=== PATIENT | female | born 1950 | race Caucasian/White ===

== ENCOUNTER 2023-07-29 10:31 | Outpatient (CLI) | payer MEDICARE, SELFPAY | END 2023-07-29 10:32 | disposition home or self-care (01) | LOC: LKVREF 10:32 | PROVIDERS: PCP Emergency Medicine; Visit Provider Emergency Medicine | DX: R11.0 Nausea (principal); E11.9 Type 2 diabetes mellitus without complications | CPT/HCPCS: 80048 ==

== ENCOUNTER 2023-12-01 12:38 | Outpatient (CLI) | payer MEDICARE, SELFPAY ==
--- NOTE | 2023-12-01 13:00 | XR_ITS ---
Patient: VERNON SYED Facility:?[facility] Patient ID:?[id number] Site Patient ID:?[id number]. Site :?1950 Study:?DEXA-Bone Density DEXA - Spine/Hips-12/01/2023 1:11:45 PM Ordering Physician:GABRIELLE Final Report: DXA BONE MINERAL DENSITY STUDY Reason for exam: Screening. Current height (inches): 65.5 Weight (lbs.): 142.0 Menopause age: 54 Ethnicity: White 1. Have you had a previous hip or vertebral fracture? No. 2. Have you had any fractures during your adult life which did not result from significant trauma (e.g., auto accident)? No. 3. Did either of your parents have a hip fracture? No. 4. Do you smoke? No. 5. Have you ever taken Glucocorticoids? No. 6. Do you have rheumatoid arthritis? No. 7. Do you have secondary osteoporosis? No. 8. Do you drink 3 or more alcoholic drinks per day? No. 9. Are you being treated for osteoporosis? No. 10. Have you ever taken any of the following medications: Actonel, Evista, Fosamax, Miacalcin, Reclast, Boniva, Forteo, HRT (i.e., estrogen/hormone therapy), Protelos, Prolia, Vitamin D, Calcium, other ? please specify. ANSWER: Yes; vitamin D, calcium. 11. Do you have any of the following medical conditions: Anorexia or bulimia, asthma or emphysema, end stage renal disease, hyperparathyroidism, any seizure disorders, cancer, inflammatory bowel diseases, hysterectomy, other ? please specify. ANSWER: Yes; Other: diabetes, GERD. 12. What was your maximum height (inches)? 66. 13. Do you perform weightbearing exercise regularly? No. 14. Do you regularly consume dairy products? No. 15. Do you drink caffeinated beverages? Yes. 16. At what age did your period start? 15. 17. Are you premenopausal? No. 18. How many full-term pregnancies have you had? Not provided. 19. Have you ever missed your period for more than 6 months in a row (not including or menopause)? Yes. TECHNIQUE: Bone mineral density study was performed using the [employer]. FINDINGS: The results of the study expressed as bone mineral density (BMD) are as follows: Lumbar Spine L1 to L4: BMD: 0.979 g/cm2. T-score: -0.6. Z-score: 1.6. Neck Left: BMD: 0.641 g/cm2. T-score: -1.9. Z-score: 0.0. Right: BMD: 0.717 g/cm2. T-score: -1.2. Z-score: 0.7. Total Left: BMD: 0.850 g/cm2. T-score: -0.8. Z-score: 0.8. Right: BMD: 0.845 g/cm2. T-score: -0.8. Z-score: 0.8. IMPRESSION: Osteopenia. FRAX 10-year Fracture Risk Major Osteoporotic Fracture: 11% Hip Fracture: 2.2% Reported Risk Factors: [place] () Neck BMD = 0.641, BMI = 23.3 RENATA PINK M.D. Diagnostic Radiologist [email or web address] MAXIME/mathieu D& Transcribed: 3:[address]/Dictated by: Renata Pink MD @ 12/03/2023 12:01:00 PM Signed by:?Renata Pink MD @12/03/2023 3:33:27 PM (Electronic Signature)
== END 2023-12-01 12:39 | disposition home or self-care (01) ==
PROVIDERS: PCP Emergency Medicine; Visit Provider Emergency Medicine
DX: R01.1 Cardiac murmur, unspecified (principal); I35.1 Nonrheumatic aortic (valve) insufficiency; Z13.6 Encounter for screening for cardiovascular disorders; Z13.820 Encounter for screening for osteoporosis; M85.88 Other specified disorders of bone density and structure, other site
CPT/HCPCS: 77080; 93306

== ENCOUNTER 2024-01-05 12:39 | Outpatient (CLI) | payer MEDICARE, SELFPAY ==
--- NOTE | 2024-01-05 13:20 | MM_ITS ---
Patient: VERNON SYED Facility:?[facility] Patient ID:?[id number] Site Patient ID:?[id number]. Site :?1950 Study:?XRay-Breast Bilateral 3D W/CAD-01/05/2024 8:08:11 AM Ordering Physician:Jing Klein Final Report: BILATERAL SCREENING MAMMOGRAM WITH COMPUTER-AIDED DETECTION AND TOMOSYNTHESIS TECHNIQUE: CC, MLO and implant-displaced views were obtained. These mammographic images have been obtained using full-field digital technique. These mammographic images were interpreted with the benefit of computer-aided detection. Breast tomosynthesis was used in this interpretation. COMPARISON FILM: 12/06/19, 11/30/19, 09/19/18. FINDINGS: The breasts are almost entirely fatty. IMPRESSION: There is no radiographic evidence for malignancy. ASSESSMENT: BI-RADS Category 2: Benign RECOMMENDATION: Routine screening mammogram in 1 year. A lay language report of this examination will be provided to the patient. RENATA PINK M.D. Diagnostic Radiologist [email or web address] DSM/mathieu D& Transcribed: 2:[address]/Dictated by: Renata Pink MD @ 01/12/2024 11:16:00 AM Signed by:?Renata Pink MD @01/12/2024 3:07:17 PM (Electronic Signature)
== END 2024-01-05 12:40 | disposition home or self-care (01) ==
LOC: MAMMO 12:39
PROVIDERS: PCP Emergency Medicine; Visit Provider Emergency Medicine
DX: Z12.31 Encounter for screening mammogram for malignant neoplasm of breast (principal)
CPT/HCPCS: 77063; 77067

== ENCOUNTER 2024-01-27 11:12 | Outpatient (CLI) | payer MEDICARE, SELFPAY ==
--- OUTSIDE RECORDS SUMMARY | 2024-01-27 11:18 | XMS_ITS | Clinical Summary ---
Author Name Unknown Organization [facility] Address [address] [place] [id number] Care Team Providers Care Paper Machine Back Tender Name Role Phone William Holloway MD Primary Care Provider [phone] Allergies Active Allergy Reactions Criticality Noted Date Comments Penicillins 06/10/2017 Lisinopril 06/10/2017 Sulfa Antibiotics 02/09/2022 Medications Medication Sig Dispensed Refills Start Date End Date Status Omeprazole (PRILOSEC PO) Active metoclopramide (REGLAN) 10 MG tablet Take 1 tablet (10 mg) by mouth every 6 hours as needed (nausea) 10 tablet 02/09/2022 Active hydrOXYzine (ATARAX) 25 MG tablet Take 1 tablet (25 mg) by mouth 3 times daily as needed for anxiety 20 tablet 08/15/2023 Active Social History Tobacco Use Types Packs/Day Years Used Date Smoking Tobacco: Never Assessed Adolescent Education Answer Date Record ed Getting School Help Needed Not on file 07/18 Sex and Gender Information Value Date Recorded Sex Assigned at Not on file Gender Identity Not on file Sexual Orientation Not on file Last Filed Vital Signs Vital Sign Reading Time Taken Comments Blood Pressure 146/86 08/15/2023 4:38 AM CONFERENCE SERVICE COORDINATOR Pulse 82 08/15/2023 4:38 AM CONFERENCE SERVICE COORDINATOR Temperature 36.1 ??C (97 ??F) 08/15/2023 4:38 AM CONFERENCE SERVICE COORDINATOR Respiratory Rate 22 08/15/2023 4:38 AM CONFERENCE SERVICE COORDINATOR Oxygen Saturation 99% 08/15/2023 4:38 AM CONFERENCE SERVICE COORDINATOR Inhaled Oxygen Concentration - - Weight - - Height - - Body Mass Index - - Plan of Treatment Health Maintenance Due Date Last Done Comments ADVANCE CARE PLANNING 1950 ANNUAL REVIEW OF HM ORDERS 1950 CT COLONOGRAPHY 1950 DEXA 1950 FIT 1950 FLEX SIG 1950 sDNA (Cologuard) 1950 HEPATITIS C SCREENING 02/21/1970 LIPID 1992 RSV VACCINE ( & 60+) (1 - 1-dose 60+ series) 2012 ZOSTER IMMUNIZATION (2 of 3) 12/18/2013 10/23/2013 FALL RISK ASSESSMENT 02/21/2017 MEDICARE ANNUAL WELLNESS VISIT 02/21/2017 COLONOSCOPY 12/27/2018 12/27/2008 COLORECTAL CANCER SCREENING 12/27/2018 MAMMO SCREENING 07/20/2019 07/20/2017, 07/13, 09/15/2012, Additional history exists DTAP/TDAP/TD IMMUNIZATION (2 - Td or Tdap) 04/07/2021 04/07/2011 Pneumococcal Vaccine: 65+ Years (3 of 3 - PPSV23 or PCV20) 02/17/2023 02/17/2018, 10/30/2003 COVID-19 Vaccine ( - 2022- season) 2023 INFLUENZA VACCINE (#1) 2023 9, 10/26/2018, 10/23/2013, Additional history exists PHQ-2 (once per calendar year) 2023 GLUCOSE 08/15/2026 08/15/2023, 02/09/2022 HPV IMMUNIZATION Aged Out No longer e ligible based on patient's age to complete this topic IPV IMMUNIZATION Aged Out No longer e ligible based on patient's age to complete this topic MENINGITIS IMMUNIZATION Aged Out No l onger eligible based on patient's age to complete this topic RSV MONOCLONAL ANTIBODY Aged Out No l onger eligible based on patient's age to complete this topic Procedures Procedure Name Priority Date/Time Associated Diagnosis Comments COMPREHENSIVE METABOLIC PANEL STAT 08/15/2023 5:00 AM CONFERENCE SERVICE COORDINATOR COLONOSCOPY Routine 12/27/2008 9:05 AM CDT ZZCL AFF HEMOGRAM/PLATELET Routine 06/09/1999 1:14 PM CDT Malig Oscar Temporal Lobe (H) Chemotherapy Session from Last 3 Months or Most Recently Relevant to Health Maintenance Results * (ABNORMAL) Comprehensive metabolic panel (08/15/2023 5:00 AM CONFERENCE SERVICE COORDINATOR) [facility] Sodium 140 135 - 145 mmol/L 08/15/2023 5:29 AM [facility] Comment:Reference intervals for this test were updated on 07/06/2023 to more accurately reflect our healthy population. There may be differences in the flagging of prior results with similar values performed with this method. Interpretation of those prior results can be made in the context of the updated reference intervals. Potassium 4.0 3.4 - 5.3 mmol/L 08/15/2023 5:29 AM [facility] Carbon Dioxide (CO2) 28 22 - 29 mmol/L 08/15/2023 5:29 AM [facility] Anion Gap 12 7 - 15 mmol/L 08/15/2023 5:29 AM [facility] Urea Nitrogen 19.7 8.0 - 23.0 mg/dL 08/15/2023 5:29 AM [facility] Creatinine 0.75 0.51 - 0.95 mg/dL 08/15/2023 5:29 AM [facility] GFR Estimate 85 >60 mL/min/1. 73m2 08/15/2023 5:29 AM [facility] Calcium 9.7 8.8 - 10.2 mg/dL 08/15/2023 5:29 AM [facility] Chloride 100 98 - 107 mmol/L 08/15/2023 5:29 AM [facility] Glucose 176(H) 70 - 99 mg/dL 08/15/2023 5:29 AM [facility] Alkaline Phosphatase 86 35 - 104 U/L 08/15/2023 5:29 AM [facility] AST 20 0 - 45 U/L 08/15/2023 5:29 AM [facility] Comment:Reference intervals for this test were updated on 03/22/2023 to more accurately reflect our healthy population. There may be differences in the flagging of prior results with similar values performed with this method. Interpretation of those prior results can be made in the context of the updated reference intervals. ALT 19 0 - 50 U/L 08/15/2023 5:29 AM [facility] Comment:Reference intervals for this test were updated on 03/22/2023 to more accurately reflect our healthy population. There may be differences in the flagging of prior results with similar values performed with this method. Interpretation of those prior results can be made in the context of the updated reference intervals. Protein Total 7.3 6.4 - 8.3 g/dL 08/15/2023 5:29 AM CONFERENCE SERVICE COORDINATOR [facility] Albumin 4.8 3.5 - 5.2 g/dL 08/15/2023 5:29 AM CONFERENCE SERVICE COORDINATOR [facility] Bilirubin Total 0.4 <=1.2 mg/dL 08/15/2023 5:29 AM CONFERENCE SERVICE COORDINATOR LABORATORY Blood BLOOD SPECIMEN / Unknown Venipuncture / Unknown 08/15/2023 5:00 AM CONFERENCE SERVICE COORDINATOR 08/15/2023 5:05 AM CONFERENCE SERVICE COORDINATOR Sonja Randolph MD LAB - BLOOD ORD ERABLES LABORATORY [facility] [address] [facility] (1st floor, no room number) [place] [address], [facility] [phone] * COLONOSCOPY (12/27/2008 9:05 AM CDT) COLONOSCOPY Endoscopy Patient Name: Ana Luisa Horne ?Gender: F ? Procedure Date: 12/27/2008 9:05 AM ? Date of : 1950 ?Age: 58 ? Admit Type: Outpatient ? Attending MD: Jhon Moreland MD ? Procedure: ? Colonoscopy Indications: ? High risk colon CA screening: Family history of ? adenomatous polyps, Modification of bowel habits Providers: ? Jhon Moreland MD Referring MD: ?Krysten Parkinson MD Medicines: ? Fentanyl (Sublimaze) IVP 100 mcgs, Versed (Midazolam) ? IVP 2 mgs, Zofran IV 4 mgs Complications: ? No immediate complications Procedure: ? - Prior to the procedure, a History and Physical was ? performed, and patient medication allergies were ? reviewed. The patient is competent. The risks and ? benefits of the procedure and the sedation options and ? risks were discussed with the patient. All questions ? were answered and informed consent was obtained. Patient ? identification and proposed procedure were verified by ? the physician and the nurse in the procedure room. ? Mental Status Examination: alert and oriented. Airway ? Examination: normal oropharyngeal airway and neck ? mobility. Respiratory Examination: clear to ? auscultation. CV Examination: normal. Prophylactic ? Antibiotics: The patient does not require prophylactic ? antibiotics. Prior Anticoagulants: The patient has taken ? aspirin, last dose was 7 days prior to procedure. ASA ? Grade Assessment: II - A patient with mild systemic ? disease. After reviewing the risks and benefits, the ? patient was deemed in satisfactory condition to undergo ? the procedure. The anesthesia plan was to use moderate ? sedation / analgesia (conscious sedation). Immediately ? prior to administration of medications, the patient was ? re-assessed for adequacy to receive sedatives. The heart ? rate, respiratory rate, oxygen saturations, blood ? pressure, adequacy of pulmonary ventilation, and ? response to care were monitored throughout the ? procedure. The physical status of the patient was ? re-assessed after the procedure. ? After obtaining informed consent, the colonoscope was ? passed under direct vision. Throughout the procedure, ? the patient's blood pressure, pulse, and oxygen ? saturations were monitored continuously. The [id number] ? #[id number] was introduced through the anus and advanced to ? cecum, identified by the appendiceal orifice, ileocecal ? valve and palpation. The colonoscopy was performed ? without difficulty. The patient tolerated the procedure ? fairly well. The quality of the prep was excellent. The ? prep was adequate to identify polyps. Scope insertion ? time was 5 minutes. Scope withdrawal time was 8 minutes. ? Findings: ? The retroflexed view of the rectum was normal and showed no ? abnormalities. The entire examined colon appeared normal. ? Impression: ?- The colon is normal. Recommendation: ?- Repeat colonoscopy in 5 years for screening purposes. ? __ Jhon Moreland MD Signed Date: 12/27/2008 9:27 AM Number of Addenda: 0 Note initiated on 12/27/2008 9:04 AM RADIOLOGY RESULTS COLONOSCOPY RADIOLOG Y RESULTS 12/27/2008 9:05 AM CDT Amy Parkinson MD PROCEDURES RADIOLOGY RESULTS * (ABNORMAL) HEMOGRAM W/ PLATELET COUNT (06/09/1999 1:14 PM CDT) WBC 2.6(A) 4.3 - 11 Thousand/CU. MM [facility] RBC Count 4.14(A) 4.2 - 5.4 Thousand/CU. MM [facility] Hemoglobin 12.5 12 - 16 G/DL [facility] Hematocrit 36.3(A) 38 - 47 Percent [facility] MCV 87.7 82 - 100 FL [facility] MCH 30.2 26 - 33 PG [facility] MCHC 34.4 31 - 36 PERCENT [facility] Platelet Count 79.0(A) 150 - 375 Thousand/CU. MM [facility] Whole blood specimen (specimen) 06/09/1999 1:14 PM CDT Susana Ramirez MD LABORATORY [facility] from Last 3 Months or Most Recently Relevant to Health Maintenance Care Teams Paper Machine Back Tender Relationship Specialty Start Date End Date William Holloway MD [facility] [id number] [place] [id number] PCP - General Family Practice 08/24/11
--- OUTSIDE RECORDS SUMMARY | 2024-01-27 11:18 | XMS_ITS | Clinical Summary ---
Author Name Unknown Organization [facility] Address [place], [place] [address] Care Team Providers Care All Around Gear Machine Operator Name Role Phone Annie Mejia MD Primary Care Provider [phone] Allergies No known active allergies Encounters Date Type Department Care Team Description 12/01/2023 2:00 PM BITUMASTIC APPLIER Ancillary Procedure [facility] [address] [place] [address] 12/01/2023 Travel from Last 3 Months Immunizations Name Administration Dates Next Due Influenza Intradermal PF 18-64 yrs 10/23/2013 Influenza, IIV3 (Age >=3 years) 07/17/2011,07/24 Tdap 04/07/2011 Zoster (Zostavax-ZVL, live) 10/23/2013 Family History Medical History Relation Name Comments Cancer-breast Mother Cancer-breast Other 1 M cousin and P cousin Cancer-breast Other 2 paternal cousin Relation Name Status Comments Mother Alive Dx at age 58 Other 1 M cousin and P cousin (Age 48) D x at age 30's, paternal cousin diagnosed at 52 and alive Other 2 paternal cousin Alive Social History Tobacco Use Types Packs/Day Years Used Date Smoking Tobacco: Never Assessed Sex and Gender Information Value Date Recorded Sex Assigned at Not on file Gender Identity Not on file Sexual Orientation Not on file Obstetrics History Plan of Treatment Health Maintenance Due Date Last Done Comments Depression screening for age 12+ 1964 BMI (ht and wt on same day) for age 18+ 02/21/1970 Hepatitis C screening for ag e 18-79 02/21/1970 Lipids for age 45-75 02/21/1997 Zoster (shingles) series for age 50+ (2 of 3) 12/18/2013 10/23/2013 DEXA/DXA scan for age 65+ 02/21/2017 Pneumococcal series for age 65+ (1 of 1 - PCV) 02/21/2017 Mammogram for age 45-75 12/06/2020 12/06/19 20, 11/30/2019, 09/19/2018, Additional history exists Tetanus booster 04/07/2021 04/07/2011 COVID-19 vaccine series ( season) 2023 Colonoscopy through age 75 12/29/202312/28 (Completed outside of [facility]) Influenza for age 65+ 06/11/2024 07/17/2011, 010 Tdap Completed 04/07/2011 Procedures Procedure Name Priority Date/Time Associated Diagnosis Comments ECHO TTE COMPLETE WO CONTRAST Routine 12/01/2023 2:34 PM BITUMASTIC APPLIER Screening due Screening for heart disease XR MAMMO JESÚS UNI ADDL VIEWS IMPLANT RIGHT Routine 12/06/2019 8:51 AM BITUMASTIC APPLIER Abnormal mammogram from Last 3 Months or Most Recently Relevant to Health Maintenance Results * ECHO TTE COMPLETE WO CONTRAST (12/01/2023 2:34 PM BITUMASTIC APPLIER) AORTIC VALVE MEAN PG 7 mmHg EJECTION FRACTION 62 % PEAK TR VELOCITY 2.5 m/s LVEDD 4.5 cm Anatomical Region Laterality Modality Ultrasound 12/01/2023 1:51 PM BITUMASTIC APPLIER Narrative 12/01/2023 3:31 PM BITUMASTIC APPLIER ECHOCARDIOGRAM VERNON SYED ? Accession#: ?? [id number] : ?1950 73 years Study Date: ?? 12/01/2023 1:51:32 PM Gender: F ?BP: ? 130/72 mmHg Height: 165.00 cm ?BSA: ?1.72 m? ? ? Weight: 65.00 kg ? Tech: ? MTS ? Referring MD: ANNIE MEJIA Site: ? [facility] Reading Location: MOBILE OP Patient Location: Outpatient. Procedure: 2D, Spectral Doppler and Color Doppler. Indication for study: Screening due; Screening for heart disease Cardiac Rhythm: Regular.Study quality: Fair. Final Impressions: 1. Normal left ventricular size, normal wall thickness, normal global systolic function, calculated EF of 62 %. 2. Right ventricular cavity size is normal, global systolic RV function is normal. 3. The aortic valve is trileaflet and sclerotic, no stenosis and mild regurgitation. 4. The mitral valve is sclerotic, no mitral regurgitation. Comparison There are no prior studies on this patient for comparison purposes. Chamber Sizes and Function Normal left ventricular size, normal wall thickness, normal global systolic function, calculated EF of 62 %. Left atrial size is normal. Right ventricular cavity size is normal, global systolic RV function is normal. RV wall thickness is normal. The right atrium is normal. Right atrial volume index is 21 ml/m? ? ?. Right atrial area is 15 cm? ? ?. The pulmonary artery is of normal size and origin. The sinus of Valsalva is normal sized. The ascending aorta is normal sized. Valves, RV Pressures and Diastolic Function The aortic valve is trileaflet and sclerotic, no stenosis and mild regurgitation. The mitral valve is sclerotic, no mitral regurgitation. Spectral Doppler shows Grade 1 pattern of LV diastolic filling. The tricuspid valve is normal in structure. Tricuspid regurgitation is mild regurgitation. The tricuspid regurgitant velocity is 2.5 m/s, the estimated right ventricular systolic pressure is 25 mmHg plus right atrial pressure. The pulmonic valve is normal. No pulmonary regurgitation. Masses, Effusion, Shunts There is no pericardial effusion. The inferior vena cava is normal sized, respiratory size variation greater than 50%. Interatrial septum is not well visualized. MEASUREMENTS AND CALCULATIONS 2-D Measurements and LV Function: LVID (d) 4.5 cm Planimetered EF 62 % LVID (s) 2.9 cm LV FS% (2D) ? 36 % IVS (d) ??1.0 cm LVOT diameter ?? 2.2 cm LVPW (d) 1.0 cm HR ?66 bpm Ao Sinus 3.0 cm LA Vol index ?24 ml/m2 Asc Ao ?? 3.2 cm RA Vol index ?21 ml/m2 ?RA area ? 15 cm?RV Max 4C (d) ?? 3.9 cm Diastology: Mitral ?Tissue Doppler ?Pulmonary veins E Peak 0.6 m/s ??e', Septum ? 0.07 m/s Pulm s ?56.0 cm/s A Peak 0.9 m/s ??e', Lateral ?0.06 m/s Pulm d ?40.0 cm/s E/A ?0.6 ?E/e' Average ?? 8.98 ? Pulm s/d ratio ??1.40 DT ? 209 msec Aortic Valve: Vmax ? 1.6 m/s ??MICHEL (V) ?? 1.76 cm? AI P 1/2 442 msec VTI ?0.39 m ?? MICHEL (I) ?? 1.65 cm? ? ? LVOT V max 0.7 m/s ??Max PG ?10 mmHg LVOT VTI ?? 0.17 m ?? Mean PG ?? 7 mmHg SV ? 64 ml ?Dim Index 0.43 SV index ?? 37 ml/m? ? ? CO ?4.2 l/min ?CI ?2.4 l/min/m? ? ? Mitral Valve: MVA ?3.6 cm? ? ? MV P 1/2 61 msec Tricuspid Valve and estimated PA pressures: TR Vmax 2.5 m/s TAPSE 1.8 cm TR maxG 25 mmHg . This study was interpreted by an [facility] accredited facility. CC: HIM (med records) [facility]. ??Final ?? Procedure Note Isaiah Rodriguez MD - 12/01/2023 ECHOCARDIOGRAM VERNON SYED : 1950 73 years Study Date: 12/01/2023 1:51:32 PM Gender: F BP: 130/72 mmHg Height: 165.00 cm BSA: 1.72 m? ? ? Weight: 65.00 kg Tech: [facility] Referring MD: ANNIE MEJIA [facility]: [facility] Reading Location: MOBILE OP Patient Location: Outpatient. Procedure: 2D, Spectral Doppler and Color Doppler. Indication for study: Screening due; Screening for heart disease Cardiac Rhythm: Regular.Study quality: Fair. Final Impressions: 1. Normal left ventricular size, normal wall thickness, normal globalsystolic function, calculated EF of 62 %. 2. Right ventricular cavity size is normal, global systolic RV functionis normal. 3. The aortic valve is trileaflet and sclerotic, no stenosis and mildregurgitation. 4. The mitral valve is sclerotic, no mitral regurgitation. Comparison There are no prior studies on this patient for comparison purposes. Chamber Sizes and Function Normal left ventricular size, normal wall thickness, normal globalsystolic function, calculated EF of 62 %. Left atrial size is normal.Right ventricular cavity size is normal, global systolic RV function isnormal. RV wall thickness is normal. The right atrium is normal. Rightatrial volume index is 21 ml/m? ? ?. Right atrial area is 15 cm? ? ?. Thepulmonary artery is of normal size and origin. The sinus of Valsalva isnormal sized. The ascending aorta is normal sized. Valves, RV Pressures and Diastolic Function The aortic valve is trileaflet and sclerotic, no stenosis and mildregurgitation. The mitral valve is sclerotic, no mitral regurgitation.Spectral Doppler shows Grade 1 pattern of LV diastolic filling. Thetricuspid valve is normal in structure. Tricuspid regurgitation is mildregurgitation. The tricuspid regurgitant velocity is 2.5 m/s, theestimated right ventricular systolic pressure is 25 mmHg plus right atrialpressure. The pulmonic valve is normal. No pulmonary regurgitation. Masses, Effusion, Shunts There is no pericardial effusion. The inferior vena cava is normal sized,respiratory size variation greater than 50%. Interatrial septum is notwell visualized. MEASUREMENTS AND CALCULATIONS 2-D Measurements and LV Function: LVID (d) 4.5 cm Planimetered EF 62 % LVID (s) 2.9 cm LV FS% (2D) 36 % IVS (d) 1.0 cm LVOT diameter 2.2 cm LVPW (d) 1.0 cm HR 66 bpm Ao Sinus 3.0 cm LA Vol index 24 ml/m2 Asc Ao 3.2 cm RA Vol index 21 ml/m2 RA area 15 cm? ? ? RV Max 4C (d) 3.9 cm Diastology: Mitral Tissue Doppler Pulmonary veins E Peak 0.6 m/s e', Septum 0.07 m/s Pulm s 56.0 cm/s A Peak 0.9 m/s e', Lateral 0.06 m/s Pulm d 40.0 cm/s E/A 0.6 E/e' Average 8.98 Pulm s/d ratio 1.40 DT 209 msec Aortic Valve: Vmax 1.6 m/s MICHEL (V) 1.76 cm? ? ? AI P 1/2 442 msec VTI 0.39 m MICHEL (I) 1.65 cm? ? ? LVOT V max 0.7 m/s Max PG 10 mmHg LVOT VTI 0.17 m Mean PG 7 mmHg SV 64 ml Dim Index 0.43 SV index 37 ml/m? ? ? CO 4.2 l/min CI 2.4 l/min/m? ? ? Mitral Valve: MVA 3.6 cm? ? ? MV P 1/2 61 msec Tricuspid Valve and estimated PA pressures: TR Vmax 2.5 m/s TAPSE 1.8 cm TR maxG 25 mmHg . This study was interpreted by an [facility] accredited facility. CC: [facility] (med records) [facility]. Final Annie Mejia MD ECHO ORD * XR MAMMO JESÚS UNI ADDL VIEWS IMPLANT RIGHT (12/06/2019 8:51 AM BITUMASTIC APPLIER) Anatomical Region Laterality Modality BREASTS, Breast Right Mammograph y 12/06/2019 8:51 AM BITUMASTIC APPLIER Narrative 12/06/2019 3:43 PM BITUMASTIC APPLIER EXAM: XR MAMMO JESÚS UNI ADDL VIEWS IMPLANT RIGHT, US BREAST UNILATERAL RIGHT LIMITED LOCATION: [facility] [place] DATE/TIME: 12/06/2019 8:51 AM INDICATION: Abnormal right mammogram. COMPARISON: Priors back to 06/02/2013. MAMMOGRAPHIC FINDINGS: Right full-field digital diagnostic mammogram performed. There are scattered areas of fibroglandular density. Breast tomosynthesis was used in interpretation. The asymmetry of the upper right breast decreases on additional views. ULTRASOUND FINDINGS: Targeted ultrasound of the upper right breast was performed. Normal tissue. No suspicious mass. Benign ectatic ducts present. The breast implant is partially visualized with findings suggestive of intracapsular rupture. IMPRESSION: ACR BI-RADS Category 2: Benign. Results given to the patient who should resume annual screening mammography. Procedure Note Lexii Reynoso MD - 12/06/2019 EXAM: XR MAMMO JESÚS UNI ADDL VIEWS IMPLANT RIGHT, US BREAST UNILATERALRIGHT LIMITED LOCATION: [facility] DATE/TIME: 12/06/2019 8:51 AM INDICATION: Abnormal right mammogram. COMPARISON: Priors back to 06/02/2013. MAMMOGRAPHIC FINDINGS: Right full-field digital diagnostic mammogramperformed. There are scattered areas of fibroglandular density. Breast tomosynthesiswas used in interpretation. The asymmetry of the upper right breast decreaseson additional views. ULTRASOUND FINDINGS: Targeted ultrasound of the upper right breast was performed. Normal tissue. No suspicious mass. Benign ectatic ductspresent. The breast implant is partially visualized with findings suggestive ofintracapsular rupture. IMPRESSION: ACR BI-RADS Category 2: Benign. Results given to the patient who should resume annual screeningmammography. Frannie Edward MD MAMMO from Last 3 Months or Most Recently Relevant to Health Maintenance Care Teams All Around Gear Machine Operator Relationship Specialty Start Date End Date Annie Mejia MD [address] [place] [address] PCP - General Emergency Medicine 12/22/23
--- OUTSIDE RECORDS SUMMARY | 2024-01-27 11:18 | XMS_ITS | Referral Summary ---
Author Name Unknown Organization [facility] Address [address] [place] [id number] Care Team Providers Care Pulley Man Name Role Phone William Holloway MD Primary Care Provider [phone] Allergies Active Allergy Reactions Criticality Noted Date [...] Comments Blood Pressure 146/86 08/15/2023 4:38 AM SQUAD SERGEANT Pulse 82 08/15/2023 4:38 AM SQUAD SERGEANT Temperature 36.1 ??C (97 ??F) 08/15/2023 4:38 AM SQUAD SERGEANT Respiratory Rate 22 08/15/2023 4:38 AM SQUAD SERGEANT Oxygen Saturation 99% 08/15/2023 4:38 AM SQUAD SERGEANT Inhaled Oxygen Concentration - - Weight - - Height - - Body Mass Index - - Plan of Treatment Not on file Procedures Procedure Name Priority Date/Time Associated Diagnosis Comments COMPREHENSIVE METABOLIC PANEL STAT 08/15/2023 5:00 AM SQUAD SERGEANT COLONOSCOPY Routine 12/27/2008 9:05 AM CDT ZZCL AFF HEMOGRAM/PLATELET Routine 06/09/1999 1:14 PM CDT Malig Oscar Temporal Lobe (H) Chemotherapy Session from Last 3 Months or Most Recently Relevant to Health Maintenance Results * (ABNORMAL) Comprehensive metabolic panel (08/15/2023 5:00 AM SQUAD SERGEANT) [facility] Sodium 140 135 - 145 mmol/L 08/15/2023 5:29 AM [facility] Comment:Reference intervals for this test were updated on 07/06/2023 to more accurately reflect our healthy population. There may be differences in the flagging of prior results with similar values performed with this method. Interpretation of those prior results can be made in the context of the updated reference intervals. Potassium 4.0 3.4 - 5.3 mmol/L 08/15/2023 5:29 AM [facility] Carbon Dioxide (CO2) 28 22 - 29 mmol/L 08/15/2023 5:29 AM [facility] Anion Gap 12 7 - 15 mmol/L 08/15/2023 5:29 AM [facility] Urea Nitrogen 19.7 8.0 - 23.0 mg/dL 08/15/2023 5:29 AM [facility] Creatinine 0.75 0.51 - 0.95 mg/dL 08/15/2023 5:29 AM [facility] GFR Estimate 85 >60 mL/min/1. 73m2 08/15/2023 5:29 AM [facility] Calcium 9.7 8.8 - 10.2 mg/dL 08/15/2023 5:29 AM [facility] Chloride 100 98 - 107 mmol/L 08/15/2023 5:29 AM [facility] Glucose 176(H) 70 - 99 mg/dL 08/15/2023 5:29 AM [facility] Alkaline Phosphatase 86 35 - 104 U/L 08/15/2023 5:29 AM [facility] AST 20 0 - 45 U/L 08/15/2023 5:29 AM [facility] Comment:Reference intervals for this test were updated on 03/22/2023 to more accurately reflect our healthy population. There may be differences in the flagging of prior results with similar values performed with this method. Interpretation of those prior results can be made in the context of the updated reference intervals. ALT 19 0 - 50 U/L 08/15/2023 5:29 AM [facility] Comment:Reference intervals for this test were updated on 03/22/2023 to more accurately reflect our healthy population. There may be differences in the flagging of prior results with similar values performed with this method. Interpretation of those prior results can be made in the context of the updated reference intervals. Protein Total 7.3 6.4 - 8.3 g/dL 08/15/2023 5:29 AM [facility] Albumin 4.8 3.5 - 5.2 g/dL 08/15/2023 5:29 AM [facility] Bilirubin Total 0.4 <=1.2 mg/dL 08/15/2023 5:29 AM [facility] Blood BLOOD SPECIMEN / Unknown Venipuncture / Unknown 08/15/2023 5:00 AM SQUAD SERGEANT 08/15/2023 5:05 AM SQUAD SERGEANT Sonja Randolph MD LAB - BLOOD ORD ERABLES LABORATORY [facility] Acute Care Lab [address] [facility] (1st floor, no room number) [place] [address], [facility] [phone] * COLONOSCOPY (12/27/2008 9:05 AM CDT) [facility] Signature COLONOSCOPY Endoscopy Patient Name: Ana Luisa Horne [...] saturations were monitored continuously. The [id number] ? #[id number] was introduced through the anus and advanced [...] Recently Relevant to Health Maintenance Care Teams Pulley Man Relationship Specialty Start Date End Date William Holloway MD [facility] [id number] [place] [id number] PCP - General Family Practice 08/24/11
== END 2024-01-27 11:13 | disposition home or self-care (01) ==
PROVIDERS: PCP Emergency Medicine; Visit Provider Emergency Medicine
DX: R53.83 Other fatigue (principal); R63.4 Abnormal weight loss; E11.9 Type 2 diabetes mellitus without complications; Z79.899 Other long term (current) drug therapy
CPT/HCPCS: 80053; 82306; 84443

== ENCOUNTER 2024-01-28 08:59 | Outpatient (CLI) | payer MEDICARE, SELFPAY | END 2024-01-28 09:00 | disposition home or self-care (01) | LOC: NFLDREF 02-03 12:20 | PROVIDERS: PCP Emergency Medicine; Referring Provider Emergency Medicine; Visit Provider Emergency Medicine | DX: E78.2 Mixed hyperlipidemia (principal) | CPT/HCPCS: 80061 ==